=== PATIENT | male | born 1960 | race Caucasian/White ===

== ENCOUNTER → 2016-12-30 | Outpatient (CLI) | payer OTHER ==
[~2016-12-30] MED LIST: BACT800T5 PO; CLIN150 PO
[2016-12-30 08:11] LABS: ANION GAP 6 MEQ/L (5-15); AST (GOT) 22 U/L (15-37); BICARBONATE 29.8 MEQ/L (21.0-32.0); BLOOD UREA NITROGEN 21 MG/DL (7-18); CHLORIDE 103 MEQ/L (98-107); GLOMERULAR FILTRATION RATE 76 ML/MIN (>89); GLUCOSE,FASTING 95 MG/DL (74-99); POTASSIUM 4.6 MEQ/L (3.5-5.1); SODIUM (NA) 139 MEQ/L (136-145)
[2016-12-30 08:17] LABS: ALKALINE PHOSPHATASE 76 U/L (45-117); ALT (GPT) 33 U/L (12-78); HDL CHOLESTEROL 56.5 MG/DL (40.0-60.0); LDL CHOLESTEROL 57 MG/DL (0-99); TOTAL BILIRUBIN ADULT 0.6 MG/DL (0.2-1.0)
== END ==
LOC: CLAB 07:19
PROVIDERS: ATTEND Family Medicine
DX: K76.0 Fatty (change of) liver, not elsewhere classified (principal); E78.5 Hyperlipidemia, unspecified
CPT/HCPCS: 36415; 80053; 80061; 84153

== ENCOUNTER → 2017-01-27 | Day surgery (SDC) | payer OTHER ==
[~2017-01-27] MED LIST changes: +ACETAMINOPHEN 1000 MG/100 ML 100 ML IV ONE; +ACETAMINOPHEN/HYDROcodone 325 MG/5 MG TAB ONE; +BUPIVACAINE/EPINEPHRINE 0.25% 50 ML VIAL ONE; +KETOROLAC TROMETHAMINE 30 MG/ML (IVP) VIAL IV PUSH ONE; +LACTATED RINGER'S 1000 ML INJ 1,000 ML ONE; +MEPERIDINE HCL 25 MG/ML VIAL ONE; +MIDAZOLAM HCL 2 MG/2 ML VIAL ONE; +ONDANSETRON HCL 4 MG/2 ML VIAL IV PUSH ONE; +PROPOFOL 200 MG/20 ML AMP IV ONE; +ROCURONIUM INJ 50 MG/5 ML VIAL IV ONE; +ceFAZolin 2 GM PREMIX 50 ML ONE
--- NOTE | 2017-01-27 16:10 | TN ---
cc: ALBINA BELCHER MICHAEL DATE OF SURGERY: 01/27/2017 PREOPERATIVE DIAGNOSIS: Bilateral inguinal hernias, umbilical incisional hernia. POSTOPERATIVE DIAGNOSIS: Bilateral inguinal hernias, umbilical incisional hernia. PROCEDURE: Laparoscopic bilateral inguinal hernia with mesh. Open umbilical incisional hernia repair. SURGEON: Michael Mustafa MD. JACKER: CASSIE Aquino. ANESTHESIA: General. INDICATIONS: This is a pleasant 56 year old gentleman who was sent to me in consultation by Dr. Belcher for a possible right inguinal hernia. The patient works in [employer] while doing some strenuous work he felt a funny feeling in the right groin. He was diagnosed with a right inguinal hernia. The physical examination demonstrated a left inguinal hernia, Smaller then the right and a small incidentally discovered umbilical incisional hernia. The patient had prior laparoscopic cholecystectomy. INTRAOPERATIVE FINDINGS: Left indirect inguinal hernia with spermatic cord lipoma. Right direct inguinal hernia defect. Right indirect inguinal hernia defect. Small umbilical incisional hernia repaired primarily with suture. This procedure was assisted by my nurse practitioner. The skill set of an HAND SANDER was medically necessary to provide improved visualization, efficiency and safely in the completion of this operation. The dev technical mgr was at the back table providing appropriate instrumentation while the nurse practitioner directly assisted me through the entirety of the procedure. DESCRIPTION OF PROCEDURE IN DETAIL: The patient was identified as Zay Stevens, taken to the operating room and placed in the supine position. Sequential compression devices were placed on bilateral lower extremities. Following induction of adequate general endotracheal anesthesia, the patients lower abdomen was prepped and draped in the usual sterile fashion with Betadine. A time out procedure was preformed. Following the completion of the time out procedure to everyone's satisfaction within the room an infraumbilical small transverse incision was carried out with a scalpel. The umbilicus lifted off hernia, preperitoneal fatty tissue and the supraumbilical scar. The anterior rectus fascia was identified and sized and the preperitoneal plate was developed with the surgeons finger directed towards the pubic symphysis. With the patient in a slight Trendelenburg position, preperitoneal dissecting wound was placed and the preperitoneal space under direct laparoscopic view the balloon was inflated to approximately 30 pumps. This allowed identification of the pubic symphysis, coopers ligaments and inferior epigastric vessels. The wound was desufflated and removed. The structural balloon trocar was placed in the preperitoneal space. This balloon was inflated to insufflation till a 11 mmHg ensued. Two infraumbilical midline, 5 mm trocars were then placed in the preperitoneal space under direct laparoscopic view after incision of the skin with scalpel. The attention was turned first to the left side. Blunt graspers were used to reduce any spermatic cord lipoma from the inguinal canal, adherent peritoneum consistent with hernia sac was reduced to the base of the spermatic cord. There is no evidence of direct or femoral hernia on the left side. A 4 x 6 inch piece of Atrium Prolite mesh was cut from the anterolateral slit, placed around the spermatic cord and tacked into position with a tacking device. Tacks were placed to approximate the anterolateral slit and on the inferolateral coopers ligament. A 2 x 5 inch piece of the mesh was placed across the anterolateral slit and held in position with a tacking device. Tacks were placed superolateral, inferomedial and superomedial. Photographs were taken of the completed repair and attention was turned to the right side. Blunt graspers were used to reduce incarcerated tissue from the direct hernia defect. Photographs were taken on the defect. Blunt dissection lateral and posterior to the spermatic cord was preformed and the adherent peritoneum was reduced from the internal inguinal ring to the base of the spermatic cord. A 4 x 6 inch piece of atrium Prolite mesh was cut with an anterolateral slit, placed around the spermatic cord, tacked into position with a tacking device. Tacks were placed to approximate the anterolateral slit and on the anterolateral coopers ligament. A 2 x 5 inch piece of the mesh was placed across the anterolateral slit and held in position with a tacking device. Placing tacks superolateral, inferomedial and superior medial. Photographs were taken of the completed repair. Care was taken to avoid tack placement inferolateral to avoid cutaneous nerve injury. The preperitoneal space was filled with local anesthetic. Trocars removed under direct visualization. There was no evidence of bleeding from the trocar sites superior during desufflation of the preperitoneal space, inferolateral mesh was held against the anterolateral abdominal wall. The infraumbilical trocar is removed and the anterior rectus fascial incision was closed with a running 2-0 Vicryl suture. The umbilical hernia defect was approximated with several interrupted inverted 0 Prolene sutures. The umbilicus was reformed with 2-0 Vicryl and skin incisions were approximated with 4-0 Monocryl subcuticular sutures. The dressings were applied with Mastisol half inch brown Steri-Strips. Gauze and Tegaderm were placed over the umbilicus. The patient tolerated the procedures without apparent complications. Sponge, needle and instrument counts were correct at the end of the case. MD EILEEN Rendon/arthur /2:41 PM /2:48 PM
== END | disposition home or self-care (01) ==
LOC: ESDC 12:12
PROVIDERS: ATTEND Surgery Trauma Surgery
DX: K40.20 Bilateral inguinal hernia, without obstruction or gangrene, not specified as recurrent (principal); K43.2 Incisional hernia without obstruction or gangrene
CPT/HCPCS: 00832; 00840; 49560; 49650; C1727; C1781; J0131; J0690; J1885; J2175; J2250; J2405; J3010; J7120